=== PATIENT | female | born 1975 | race Caucasian/White ===

== ENCOUNTER 2019-06-06 21:10 | Emergency (ER) | payer OTHER ==
[~2019-06-06] VITALS: Ht 167.6 cm; Wt 82.1 kg
[~2019-06-06 21:10] MED LIST: ATORVASTATIN CA10 M1 PO; CLINDAMYCIN HC300 MG PO; FAMOTIDINE20 M1 PO; MACROBID100 M1 PO; METOPROLOL SUCC25 M2 PO; Motrin,Rufen800 MG PO; NICODERM14 MG/24 H TD; Orphenadrine C100 MG PO; PROAIR HFA8.5 GM IH; PYRIDIUM200 M1 PO; SYMBICORT1 AE1 INH; ZITHROMAX250 MG PO
[2019-06-06 21:32] LABS: BILIRUBIN NEGATIVE (NEGATIVE); BLOOD 2+ (NEGATIVE); CLARITY CLOUDY (CLEAR); COLOR YELLOW (YELLOW); GLUCOSE TRACE (NEGATIVE); KETONE NEGATIVE (NEGATIVE); LEUKO ESTERASE 2+ (NEGATIVE); NITRITE POSITIVE (NEGATIVE); PH 5.5 (5.0-9.0); SPECIFIC GRAVITY >= 1.030 (1.005-1.030)
[2019-06-06 21:44] LABS: WBC TNTC wbc/hpf (0-5)
[2019-06-06] MEDS ORDERED: SEPTDS PO (21:53)
[2019-06-06] MEDS ORDERED: PYRIDIUM100 MG PO (22:01)
== END 2019-06-06 22:05 | disposition home or self-care (01) ==
LOC: ED 21:10
PROVIDERS: Nurse Practitioner Family
DX: N39.0 Urinary tract infection, site not specified (principal); F17.200 Nicotine dependence, unspecified, uncomplicated; Z87.442 Personal history of urinary calculi

== ENCOUNTER 2019-07-19 08:26 | Emergency (ER) | payer OTHER ==
[~2019-07-19] VITALS: Ht 170.1 cm; Wt 77.1 kg
[~2019-07-19 08:26] MED LIST changes: +PYRIDIUM100 MG PO; +SEPTDS PO
[2019-07-19] MEDS ORDERED: PENICILLIN-VK500 MG PO (09:06)
[2019-07-19] MEDS ORDERED: NAPROSYN500 MG PO (09:06)
[2019-07-19] MEDS ORDERED: TYLENOL325 M1 PO (09:06)
== END 2019-07-19 09:27 | disposition home or self-care (01) ==
LOC: ED 08:26
DX: K04.7 Periapical abscess without sinus (principal); K02.9 Dental caries, unspecified; K08.409 Partial loss of teeth, unspecified cause, unspecified class

== ENCOUNTER → 2024-03-03 | Outpatient (CLI) | payer OTHER ==
[~2024-03-03] MED LIST changes: +NAPROSYN500 MG PO; +PENICILLIN-VK500 MG PO; +TYLENOL325 M1 PO
[2024-03-03 10:00] LABS: BASO # 0.1 10*3/uL (0.0-0.1); BASO % 0.9 % (0.0-1.0); EOS # 0.1 10*3/uL (0.0-0.4); EOS % 1.5 % (1.0-4.0); HEMATOCRIT 45.3 % (37.0-47.0); LYMPH # 2.1 10*3/uL (1.3-4.4); LYMPH % 31.2 % (27.0-41.0); MEAN CELL VOLUME 82.1 fl (81.0-99.0); MEAN CORPUSCULAR HGB 25.9 pg (27.0-31.0); MEAN CORPUSCULAR HGB CONC 31.6 g/dl (33.0-37.0); MEAN PLATELET VOLUME 11.4 fl (9.6-12.3); MONO # 0.5 10*3/uL (0.1-1.0); MONO % 7.1 % (3.0-9.0); NEUT # 3.9 10*3/uL (2.3-7.9); NEUT % 58.7 % (47.0-73.0); PLATELET COUNT AUTOMATED 197 10*3/uL (130-400); RED BLOOD COUNT 5.52 10*6/uL (4.10-5.10); RED CELL DISTRI WIDTH 15.7 % (0-14.5); WHITE BLOOD COUNT 6.6 10*3/uL (4.8-10.8)
[2024-03-03 10:24] LABS: ALKALINE PHOSPHATASE 107 U/L (46-116); BUN 10 mg/dl (9-23); CHLORIDE 105 mmol/L (98-107); CHOLESTEROL 200 mg/dL (<200); LDL CHOLESTEROL 112 mg/dL (9-159); POTASSIUM 4.2 mmol/L (3.4-5.1); SGPT/ALT 18 U/L (5-49); TOTAL PROTEIN 6.9 gm/dL (6.0-8.0); TRIGLYCERIDES 303 mg/dl (<150)
== END | disposition home or self-care (01) ==
LOC: LAB 09:14
PROVIDERS: ATTEND Nurse Practitioner Family
DX: Z13.0 Encounter for screening for diseases of the blood and blood-forming organs and certain disorders involving the immune mechanism (principal); Z13.29 Encounter for screening for other suspected endocrine disorder; Z13.228 Encounter for screening for other metabolic disorders; Z13.220 Encounter for screening for lipoid disorders; E11.9 Type 2 diabetes mellitus without complications

== ENCOUNTER → 2024-03-23 | Outpatient (CLI) | payer OTHER | END | disposition home or self-care (01) | LOC: LAB 16:02 | PROVIDERS: ATTEND Nurse Practitioner Family | DX: R30.0 Dysuria (principal) ==

== ENCOUNTER → 2024-06-22 | Outpatient (CLI) | payer OTHER ==
[2024-06-22 17:42] LABS: URINE CREATININE RANDOM 55.94 mg/dL
== END | disposition home or self-care (01) ==
LOC: LAB 17:18
PROVIDERS: ATTEND Nurse Practitioner Family
DX: E11.9 Type 2 diabetes mellitus without complications (principal)